=== PATIENT | female | born 1930 | race Caucasian/White ===

== ENCOUNTER 2017-04-09 15:18 | Inpatient (IN) | payer MEDICARE, MEDICAID ==
[~2017-04-09] VITALS: Ht 160 cm; Wt 64.9 kg
--- NOTE | 2017-04-09 15:30 | NUR ---
PT BIBRA TO ER BED 10. HERE FOR MEDICAL CLEARANCE PRIOR TO POSSIBLE ERNESTO PSYCH ADMISSION. HERE FOR INCREASING CONFUSION. GOWNED AND PLACED ON MONITOR. NAD NOTED AWAITING MD MATTHEWS.
--- NOTE | 2017-04-09 15:47 | NUR ---
DR VILLALOBOS AT BEDSIDE FOR EVAL.
[2017-04-09 15:55] LABS: BASOPHILS # (AUTO) 0.1 /CMM (0.0-0.2); BASOPHILS % (AUTO) 1.1 % (0.0-2.0); EOSINOPHILS # (AUTO) 0.3 /CMM (0.0-0.7); EOSINOPHILS % (AUTO) 6.3 % (0.0-6.0); HEMATOCRIT 33 % (33-45); HEMOGLOBIN 10.4 g/dL (11.5-14.8); LYMPHOCYTES # (AUTO) 1.1 /CMM (0.8-4.8); LYMPHOCYTES % (AUTO) 21.3 % (20.0-44.0); MEAN CORPUSCULAR HEMOGLOBIN 27 PG (26.0-33.0); MEAN CORPUSCULAR HGB CONC 32 g/dl (31.0-36.0); MEAN CORPUSCULAR VOLUME 86 fL (82-100); MONOCYTES # (AUTO) 0.5 /CMM (0.1-1.30); MONOCYTES % (AUTO) 9.5 % (2.0-12.0); NEUTROPHILS # (AUTO) 3.4 /CMM (1.8-8.9); NEUTROPHILS % (AUTO) 61.8 % (43.0-81.0); PLATELET COUNT (AUTO) 210 /CMM (150-450); RDW COEFFICIENT OF VARIATION 15.6 (11.5-15.0); WHITE BLOOD COUNT (AUTO) 5.4 K/uL (4.3-11.0)
[2017-04-09 16:03] LABS: CALCIUM, SERUM 8.5 mg/dL (8.5-10.1); CARBON DIOXIDE 28 mmol/L (21-32); CHLORIDE 107 mmol/L (98-107); CREATININE 1.1 mg/dL (0.6-1.3); GLUCOSE 106 mg/dL (74-106); POTASSIUM 3.5 mmol/L (3.5-5.1); SODIUM SERUM 142 mmol/L (136-145); UREA NITROGEN, BLOOD 11 mg/dL (7-18)
[2017-04-09 16:18] LABS: ACETAMINOPHEN 1 ug/ml (10-30); ALANINE AMINOTRANSFERASE 32 U/L (12-78); ALCOHOL, BLOOD < 3 mg/dL (0-0); ALKALINE PHOSPHATASE 59 U/L (46-116); ASPARTATE AMINOTRANSFERASE 35 U/L (15-37); BILIRUBIN,DIRECT 0.1 mg/dL (0.0-0.2); BILIRUBIN,TOTAL 0.3 mg/dL (0.2-1.0); TOTAL PROTEIN, SERUM 5.4 g/dL (6.4-8.2)
[2017-04-09 16:19] LABS: SALICYLATE 1.8 mg/dL (2.8-20.0)
[2017-04-09 17:00] LABS: APPEARANCE,URINE Clear (CLEAR); BILIRUBIN,URINE Negative (NEGATIVE); BLOOD, URINE Negative Ery/uL (NEGATIVE); COLOR,URINE Yellow (YELLOW); KETONES,URINE Negative (NEGATIVE); LEUKOCYTE ESTERASE ,URINE Negative (NEGATIVE); NITRITE, URINE Negative (NEGATIVE); PH,URINE 5.5 (5.0-8.0); PROTEIN,URINE Negative (NEGATIVE); UGLUCOSE Negative (NEGATIVE); UROBILINOGEN,URINE 0.2 EU/dL (0.2)
[2017-04-09] MEDS ORDERED: MELO7.5T12 PO (17:27)
[2017-04-09] MEDS ORDERED: ACET-2605 PO (17:27)
[2017-04-09] MEDS ORDERED: LUTE20CA PO (17:27)
[2017-04-09] MEDS ORDERED: SENN8.6T6 PO (17:27)
[2017-04-09] MEDS ORDERED: MULT-213 PO (17:27)
[2017-04-09] MEDS ORDERED: CLON0.2T PO (17:27)
[2017-04-09] MEDS ORDERED: LAMO100T PO (17:27)
[2017-04-09] MEDS ORDERED: BUPR-96 PO (17:27)
[2017-04-09] MEDS ORDERED: TRAZ-144 PO (17:27)
[2017-04-09] MEDS ORDERED: CALC-1049 PO (17:27)
[2017-04-09] MEDS ORDERED: DULO30CA2 PO (17:27)
[2017-04-09] MEDS ORDERED: QUET25TA PO (17:27)
[2017-04-09] MEDS ORDERED: HYDR12.55 PO (17:27)
[2017-04-09] MEDS ORDERED: DOCU100T2 PO (17:27)
[2017-04-09] MEDS ORDERED: BENA40TA2 PO (17:27)
[2017-04-09] MEDS ORDERED: ASPI-991 PO (17:27)
[2017-04-09] MEDS ORDERED: CEPH500C2 PO (17:27)
[2017-04-09] MEDS ORDERED: CHOL200026 PO (17:27)
[2017-04-09] MEDS ORDERED: LISINOPRIL (20MG) 20 MG TABLET PO STA (17:45)
--- NOTE | 2017-04-09 18:20 | NUR ---
REPORT GIVEN. PT AWAITING TRANSFER TO FLOOR.
[2017-04-09] MEDS ORDERED: MAG HYDROX/AL HYDROX/SIMETH 30 ML UDC PO PRN (19:00)
[2017-04-09] MEDS ORDERED: ACETAMINOPHEN 325 MG TABLET PO PRN (19:00)
[2017-04-09] MEDS ORDERED: MAGNESIUM HYDROXIDE 30 ML UDC PO PRN (19:00)
--- NOTE | 2017-04-09 19:00 | NUR ---
GPS RN ADMITTING NOTES: ADMITTED AN 86YO FEMALE FROM [facility] ON 5150 HOLD FOR GRAVE DISABILITY. PER HOLD THE PATIENT HAS BEEN UNCOOPERATIVE WITH CARE, AGITATED AND COMBATIVE AT TIMES, EASILY AGITATED AND CONFUSED. IT WAS ALSO STATED ON THE HOLD PATIENT BELIEVES SHE IS AT THE AIRPORT AT THIS TIME. PATIENT WILL BE UNDER THE CARE OF DR. NUÑEZ AND DR. THOMAS. THIS ADMISSION WAS INITIALLY STARTED BY DAY SHIFT RN'S. PICTURES WERE TAKEN AND PLACED IN THE CHART. PATIENT WAS UNABLE TO SIGN ADMISSION PAPERS SHE IS DISORGANIZED AND CONFUSED DURING THE ASSESSMENT. TOXICS PROGRAM OFFICER MADE A FACE TO FACE ASSESSMENT WITH PATIENT, SHE WAS OBSERVED TO BE CONFUSED, DISORGANIZED, DISHEVELED, UNKEMPT, EASILY AGITATED. ALERT AND ORIENT X1-NAME ONLY. PATIENT REFUSED TO FOLLOW INSTRUCTIONS FROM THE STAFF, ARGUMENTATIVE. REALITY ORIENTATION DONE. BELONGINGS AND CONTRABAND CHECKED. PATIENT CHANGED TO HOSPITAL GOWN AND CHANGED INTO A CLEAN DIAPER. FULL BODY ASSESSMENT DONE. PATIENT HAS HAD MULTIPLE HISTORY OF FALLS. 1:1 SITTER PROVIDED. UPON ADMISSION, PATIENT HAD A HIGH BLOOD PRESSURE- 181/79. DR. TENA INFORMED, WITH ORDERS TO GIVE HYDRALAZINE 25 MG PO Q6H FOR SBP OF 160 OR MORE. PRIOR TO GIVING THE MEDICATION BP RECHECKED 128-/83 HEART RATE OF 67. DR TENA INFORMED OF THE MED RECONCILIATION. DR. NUÑEZ INFORMED OF THE ADMISSION. INITIAL PSYCHE ADMISSION ORDERS DONE. CARE PLAN INITIATED. 1:1 SITTER MAINTAINED AND IN CLOSE PROXIMITY. WILL MONITOR PATIENT FOR MOOD, SAFETY AND BEHAVIOR. WILL ENDORSE PATIENT TO DAY SHIFT NURSE.
[2017-04-09 19:01] VITALS: BP 181/79
[2017-04-09] MEDS ORDERED: hydrALAZINE HCL 25 MG TABLET PO PRN (20:00)
[2017-04-09 20:15] VITALS: BP 128/83
[2017-04-09] MEDS ORDERED: clonazePAM 0.5 MG TABLET PO SCH (21:00)
[2017-04-09] MEDS: clonazePAM 1 MG TABLET PO PRN (21:01)
[2017-04-09] MEDS ORDERED: CLONIDINE HCL 0.2 MG TABLET PO PRN (23:30)
[2017-04-10 08:00] VITALS: BP 150/68
[2017-04-10] MEDS: CEPHALEXIN MONOHYDRATE 500 MG CAPSULE PO SCH ×4 (08:03→20:34)
[2017-04-10] MEDS: CALCIUM CARB 600MG /VIT D 1 EACH TABLET PO SCH (08:03)
[2017-04-10] MEDS: ASPIRIN EC 81 MG TABLET.DR PO SCH (08:04)
[2017-04-10] MEDS: CHOLECALCIFEROL 1,000 UNIT TABLET (VIT D3) PO SCH (08:04)
[2017-04-10] MEDS: BENAZEPRIL HCL 20 MG TABLET PO SCH (08:05)
[2017-04-10 08:16] LABS: ALANINE AMINOTRANSFERASE 33 U/L (12-78); ALBUMIN 3.1 g/dL (3.4-5.0); ALKALINE PHOSPHATASE 65 U/L (46-116); ASPARTATE AMINOTRANSFERASE 28 U/L (15-37); BILIRUBIN,TOTAL 0.4 mg/dL (0.2-1.0); CALCIUM, SERUM 8.6 mg/dL (8.5-10.1); CARBON DIOXIDE 26 mmol/L (21-32); CHLORIDE 111 mmol/L (98-107); CREATININE 0.9 mg/dL (0.6-1.3); GLUCOSE 89 mg/dL (74-106); POTASSIUM 3.4 mmol/L (3.5-5.1); SODIUM SERUM 145 mmol/L (136-145); TOTAL PROTEIN, SERUM 5.5 g/dL (6.4-8.2); UREA NITROGEN, BLOOD 8 mg/dL (7-18)
[2017-04-10] MEDS ORDERED: CLONIDINE HCL 0.1 MG TABLET PO PRN (08:30)
[2017-04-10] MEDS ORDERED: POTASSIUM CHLORIDE 20 MEQ TAB.PRT.SR PO ONE (10:30)
--- NOTE | 2017-04-10 14:09 | NUR ---
WOUND CARE CONSULT: PT PRESENTS WITH MULTIPLE BRUISES, SCABS TO BODY AND SOME DRY ABRASIONS TO RT FOOT, PRESENT ON ADMISSION. RECOMMENDATIONS MADE FOR SKIN PROTECTION. PT AMBULATED TO BATHROOM WITH ASSISTANCE. WILL SEE PRN. BRITT IN AGREEMENT WITH PLAN OF CARE. Addendum: 04/10/17 at 1410 by CYNDI BARRAGAN WNDNU Amended: Links added.
[2017-04-10] MEDS ORDERED: Z GUARD REMEDY 2 OZ OINT TP PRN (14:30)
[2017-04-10] MEDS: Z GUARD REMEDY 2 OZ OINT TP SCH (16:09)
[2017-04-10 16:10] VITALS: BP 153/83
[2017-04-10] MEDS: QUETIAPINE FUMARATE 25 MG TABLET PO SCH (16:50)
[2017-04-10] MEDS: DULOXETINE HCL 30 MG CAPSULE.DR PO SCH (16:50)
--- NOTE | 2017-04-10 17:03 | NUR ---
Initial discharge plan: Pt. was residing at [address] [place] [address] but per report, appears to be needing a placement. SW will follow up with children, Liza [phone],Kyler [phone], and Tai [phone] regarding discharge plan and will follow up with . SW will help arrange for a safe and proper discharge.
[2017-04-10 20:14] VITALS: BP 160/70
[2017-04-10] MEDS: TRAZODONE 50 MG TABLET PO SCH (21:19)
[2017-04-10] MEDS: SENNOSIDES 8.6 MG TABLET PO SCH (21:19)
[2017-04-11 08:00] VITALS: BP 111/62
[2017-04-11] MEDS: CALCIUM CARB 600MG /VIT D 1 EACH TABLET PO SCH (08:39)
[2017-04-11] MEDS: CEPHALEXIN MONOHYDRATE 500 MG CAPSULE PO SCH ×4 (08:39→21:15)
[2017-04-11] MEDS: BENAZEPRIL HCL 20 MG TABLET PO SCH (08:40)
[2017-04-11] MEDS: CHOLECALCIFEROL 1,000 UNIT TABLET (VIT D3) PO SCH (08:40)
[2017-04-11] MEDS: Z GUARD REMEDY 2 OZ OINT TP SCH (08:44)
[2017-04-11] MEDS: QUETIAPINE FUMARATE 25 MG TABLET PO SCH ×2 (08:45→16:13)
[2017-04-11] MEDS: DULOXETINE HCL 30 MG CAPSULE.DR PO SCH (08:48)
[2017-04-11] MEDS: ASPIRIN EC 81 MG TABLET.DR PO SCH (08:48)
[2017-04-11] MEDS: clonazePAM 1 MG TABLET PO PRN (14:11)
--- NOTE | 2017-04-11 14:38 | NUR ---
GPS RN NOTE: PATIENT IN THE ROOM AWAKE RESTLESS AND ANXIOUS CLONOPIN 0.25 MG GIVEN PER ORDER VSS STABLE PT BRETHING EVEN AND NONLABORED PATIENT 1:1 SITTER FOR SAFETY NOTED PATIENT VSS STABLE WILL CONTINUE MONITORING FOR SAFETY AND BEHAVIOR Q 15 MIN
[2017-04-11 15:43] VITALS: BP 151/81
[2017-04-11] MEDS: MEMANTINE HCL 5 MG TABLET PO SCH (16:13)
[2017-04-11 20:00] VITALS: BP 124/54
[2017-04-11] MEDS: DONEPEZIL 5 MG TABLET PO SCH (21:15)
[2017-04-11] MEDS: SENNOSIDES 8.6 MG TABLET PO SCH (21:16)
[2017-04-11] MEDS: TRAZODONE 50 MG TABLET PO SCH (21:16)
--- NOTE | 2017-04-12 06:31 | NUR ---
RN GPS NOTES PATIENT RESTING HER BED, NO ACUTE DISTRESS NOTED ,NO CHANGES IN STATUS. ALL NEEDS ATTENDED ANTICIPATED . REMAINED 1:1 SITTER FOR SAFETY, WILL ENDORSE TO NEXT SHIFT FOR CONTINUITY CARE
[2017-04-12 06:51] VITALS: BP 120/65
[2017-04-12 07:37] LABS: CHOLESTEROL 241 mg/dL (<200); HDL CHOLESTEROL 58 mg/dL (40-60); LDL 156 mg/dL (0-99); TRIGLYCERIDES 124 mg/dL (30-150)
[2017-04-12 08:00] VITALS: BP 119/76
[2017-04-12] MEDS: CHOLECALCIFEROL 1,000 UNIT TABLET (VIT D3) PO SCH (09:39)
[2017-04-12] MEDS: MEMANTINE HCL 5 MG TABLET PO SCH (09:39)
[2017-04-12] MEDS: CEPHALEXIN MONOHYDRATE 500 MG CAPSULE PO SCH ×2 (09:39→12:38)
[2017-04-12] MEDS: ASPIRIN EC 81 MG TABLET.DR PO SCH (09:39)
[2017-04-12] MEDS: DOCUSATE SODIUM 100 MG CAPSULE PO PRN (09:39)
[2017-04-12] MEDS: DULOXETINE HCL 30 MG CAPSULE.DR PO SCH (09:39)
[2017-04-12] MEDS: CALCIUM CARB 600MG /VIT D 1 EACH TABLET PO SCH (09:39)
[2017-04-12] MEDS: QUETIAPINE FUMARATE 25 MG TABLET PO SCH ×2 (09:40→16:42)
[2017-04-12] MEDS: BENAZEPRIL HCL 20 MG TABLET PO SCH (09:42)
[2017-04-12] MEDS: Z GUARD REMEDY 2 OZ OINT TP SCH (09:49)
[2017-04-12 15:59] VITALS: BP 155/80
--- NOTE | 2017-04-12 16:11 | NUR ---
RN-CO: CALLED DR NULL TO INFORM HER THAT PATIENT'S DAUGHTER , KELSEY WANTS TO TALK TO HER BUT THE OFFICE IS ALREADY CLOSED. ENDORSED TO THE NEXT SHIFT.
--- NOTE | 2017-04-12 19:21 | NUR ---
GPS/RN NOTE; RECEIVED PATIENT ALERT, ORIENTED X3, NO COMPLAINTS MADE AT THIS TIME. NO APPARENT DISTRESS NOTED.
[2017-04-12 20:00] VITALS: BP 117/57
[2017-04-12] MEDS: DONEPEZIL 5 MG TABLET PO SCH (21:08)
[2017-04-12] MEDS: SENNOSIDES 8.6 MG TABLET PO SCH (21:08)
[2017-04-12] MEDS: TRAZODONE 50 MG TABLET PO SCH (21:08)
[2017-04-13 08:00] VITALS: BP 143/59
[2017-04-13] MEDS: ASPIRIN EC 81 MG TABLET.DR PO SCH (08:49)
[2017-04-13] MEDS: BENAZEPRIL HCL 20 MG TABLET PO SCH (08:50)
[2017-04-13] MEDS: CALCIUM CARB 600MG /VIT D 1 EACH TABLET PO SCH (08:50)
[2017-04-13] MEDS: CHOLECALCIFEROL 1,000 UNIT TABLET (VIT D3) PO SCH (08:50)
[2017-04-13] MEDS: DULOXETINE HCL 30 MG CAPSULE.DR PO SCH (08:50)
[2017-04-13] MEDS: MEMANTINE HCL 5 MG TABLET PO SCH (08:50)
[2017-04-13] MEDS: QUETIAPINE FUMARATE 25 MG TABLET PO SCH ×2 (08:51→17:43)
[2017-04-13] MEDS: Z GUARD REMEDY 2 OZ OINT TP SCH (08:57)
[2017-04-13 16:00] VITALS: BP 148/58
[2017-04-13 20:00] VITALS: BP 146/73
[2017-04-13] MEDS: TRAZODONE 50 MG TABLET PO SCH (21:02)
[2017-04-13] MEDS: SENNOSIDES 8.6 MG TABLET PO SCH (21:02)
[2017-04-13] MEDS: DONEPEZIL 5 MG TABLET PO SCH (21:02)
[2017-04-14 07:52] VITALS: BP 153/68
[2017-04-14] MEDS: MEMANTINE HCL 5 MG TABLET PO SCH (09:11)
[2017-04-14] MEDS: ASPIRIN EC 81 MG TABLET.DR PO SCH (09:11)
[2017-04-14] MEDS: CHOLECALCIFEROL 1,000 UNIT TABLET (VIT D3) PO SCH (09:11)
[2017-04-14] MEDS: DULOXETINE HCL 30 MG CAPSULE.DR PO SCH (09:12)
[2017-04-14] MEDS: BENAZEPRIL HCL 20 MG TABLET PO SCH (09:12)
[2017-04-14] MEDS: CALCIUM CARB 600MG /VIT D 1 EACH TABLET PO SCH (09:12)
[2017-04-14] MEDS: QUETIAPINE FUMARATE 25 MG TABLET PO SCH ×2 (09:12→17:22)
[2017-04-14] MEDS: Z GUARD REMEDY 2 OZ OINT TP SCH (09:13)
[2017-04-14] MEDS: clonazePAM 1 MG TABLET PO PRN (10:42)
--- NOTE | 2017-04-14 10:42 | NUR ---
ADMINISTERED KLONOPIN 0.25 MG PO PRN FOR ANXIETY, PARANOIA, V/S TAKEN BP-138/69, P-70, CONTINUED MONITORING.
[2017-04-14 15:48] VITALS: BP 140/67
[2017-04-14 20:11] VITALS: BP 108/50
[2017-04-14] MEDS: TRAZODONE 50 MG TABLET PO SCH (21:02)
[2017-04-14] MEDS: DONEPEZIL 5 MG TABLET PO SCH (21:02)
[2017-04-14] MEDS: SENNOSIDES 8.6 MG TABLET PO SCH (21:02)
[2017-04-15 08:00] VITALS: BP 156/64
[2017-04-15] MEDS: QUETIAPINE FUMARATE 25 MG TABLET PO SCH ×2 (08:14→16:19)
[2017-04-15] MEDS: DULOXETINE HCL 30 MG CAPSULE.DR PO SCH (08:14)
[2017-04-15] MEDS: MEMANTINE HCL 5 MG TABLET PO SCH (08:14)
[2017-04-15] MEDS: BENAZEPRIL HCL 20 MG TABLET PO SCH (08:14)
[2017-04-15] MEDS: Z GUARD REMEDY 2 OZ OINT TP SCH (08:16)
[2017-04-15] MEDS: ASPIRIN EC 81 MG TABLET.DR PO SCH (08:21)
[2017-04-15] MEDS: CALCIUM CARB 600MG /VIT D 1 EACH TABLET PO SCH (08:21)
[2017-04-15] MEDS: CHOLECALCIFEROL 1,000 UNIT TABLET (VIT D3) PO SCH (12:27)
--- NOTE | 2017-04-15 15:25 | NUR ---
YVONNE spoke with daughter, Tai [phone] who reported that pt. was a resident at the [facility] [place] [address], [place] [address] but wants her to go to their shelter facility for rehabilitation upon discharge. YVONNE called [facility] [phone] and spoke with Ana, and she forwarded the call to Lucie [phone] fax [phone]. YVONNE spoke with Lucie and faxed a referral for their SNF but per Lucie, they will look at the paperwork, discuss with the treatment team, and will determine what level of care she requires. YVONNE will follow up with Lucie.
[2017-04-15 16:00] VITALS: BP 140/65
[2017-04-15 19:37] VITALS: BP 98/49
[2017-04-15] MEDS: DONEPEZIL 5 MG TABLET PO SCH (21:15)
[2017-04-15] MEDS: SENNOSIDES 8.6 MG TABLET PO SCH (21:15)
[2017-04-15] MEDS: TRAZODONE 50 MG TABLET PO SCH (21:15)
[2017-04-16 08:00] VITALS: BP 149/59
[2017-04-16] MEDS: CHOLECALCIFEROL 1,000 UNIT TABLET (VIT D3) PO SCH (08:40)
[2017-04-16] MEDS: DULOXETINE HCL 30 MG CAPSULE.DR PO SCH (08:41)
[2017-04-16] MEDS: CALCIUM CARB 600MG /VIT D 1 EACH TABLET PO SCH (08:41)
[2017-04-16] MEDS: BENAZEPRIL HCL 20 MG TABLET PO SCH (08:41)
[2017-04-16] MEDS: QUETIAPINE FUMARATE 25 MG TABLET PO SCH ×2 (08:41→16:15)
[2017-04-16] MEDS: ASPIRIN EC 81 MG TABLET.DR PO SCH (08:41)
[2017-04-16] MEDS: MEMANTINE HCL 5 MG TABLET PO SCH (08:41)
[2017-04-16] MEDS: Z GUARD REMEDY 2 OZ OINT TP SCH (08:42)
--- NOTE | 2017-04-16 14:35 | NUR ---
YVONNE received a voicemail from Lucie from [facility] [phone] fax [phone] stating they are unable to accommodate the patient and that pt. cannot return back to the [facility]. YVONNE spoke with pt's daughter, Tai [phone] notifying her of the update and asked if YVONNE should start looking at other options. Tai said she will speak with her siblings and will call back.
[2017-04-16 16:00] VITALS: BP 119/63
--- NOTE | 2017-04-16 16:36 | NUR ---
YVONNE faxed a referral to [facility] [place] [address] [facility], [place] [address] . Will follow up Addendum: 04/18/17 at 1559 by TAD RUSSELL Per Rosie at the facility, pt is accepted.
[2017-04-16] MEDS: clonazePAM 1 MG TABLET PO PRN ×2 (17:24→17:39)
--- NOTE | 2017-04-16 17:33 | NUR ---
GPS RN NOTE PT INCREASINGLY AGITATED, CUSSING AT STAFF AND YELLING. PT UNSTEADY AND FALL PRECAUTIONS IN PLACE.. REORIENTATING AND REDIRECTING PT TO DECREASE AGITATION.
[2017-04-16 20:43] VITALS: BP 123/63
[2017-04-16] MEDS: SENNOSIDES 8.6 MG TABLET PO SCH (21:14)
[2017-04-16] MEDS: DONEPEZIL 5 MG TABLET PO SCH (21:14)
[2017-04-16] MEDS: TRAZODONE 50 MG TABLET PO SCH (21:14)
[2017-04-17] MEDS: clonazePAM 1 MG TABLET PO PRN ×2 (03:52→21:23)
[2017-04-17 08:00] VITALS: BP 105/50
[2017-04-17] MEDS: CHOLECALCIFEROL 1,000 UNIT TABLET (VIT D3) PO SCH (09:38)
[2017-04-17] MEDS: DULOXETINE HCL 30 MG CAPSULE.DR PO SCH (09:38)
[2017-04-17] MEDS: ASPIRIN EC 81 MG TABLET.DR PO SCH (09:38)
[2017-04-17] MEDS: QUETIAPINE FUMARATE 25 MG TABLET PO SCH ×2 (09:38→17:00)
[2017-04-17] MEDS: CALCIUM CARB 600MG /VIT D 1 EACH TABLET PO SCH (09:38)
[2017-04-17] MEDS: MEMANTINE HCL 5 MG TABLET PO SCH (09:39)
[2017-04-17] MEDS: BENAZEPRIL HCL 20 MG TABLET PO SCH (09:40)
[2017-04-17] MEDS: Z GUARD REMEDY 2 OZ OINT TP SCH (09:43)
--- NOTE | 2017-04-17 15:06 | NUR ---
YVONNE spoke with pt's Liza robbins [phone] who wanted to know why pt. could not return to the previous facility, [facility] before she can talk to them and make a decision about discharge plan. YVONNE will follow up
[2017-04-17 16:20] VITALS: BP 106/58
[2017-04-17 20:27] VITALS: BP 109/46
[2017-04-17] MEDS: SENNOSIDES 8.6 MG TABLET PO SCH (21:23)
[2017-04-17] MEDS: DONEPEZIL 5 MG TABLET PO SCH (21:23)
[2017-04-17] MEDS: TRAZODONE 50 MG TABLET PO SCH (21:23)
[2017-04-18] MEDS: TEMAZEPAM 7.5 MG CAPSULE PO PRN ×2 (00:12→20:54)
[2017-04-18 08:00] VITALS: BP 159/60
[2017-04-18] MEDS: DOCUSATE SODIUM 100 MG CAPSULE PO PRN (09:01)
[2017-04-18] MEDS: CHOLECALCIFEROL 1,000 UNIT TABLET (VIT D3) PO SCH (09:02)
[2017-04-18] MEDS: CALCIUM CARB 600MG /VIT D 1 EACH TABLET PO SCH (09:02)
[2017-04-18] MEDS: ASPIRIN EC 81 MG TABLET.DR PO SCH (09:02)
[2017-04-18] MEDS: MEMANTINE HCL 5 MG TABLET PO SCH (09:02)
[2017-04-18] MEDS: QUETIAPINE FUMARATE 25 MG TABLET PO SCH ×2 (09:02→16:08)
[2017-04-18] MEDS: BENAZEPRIL HCL 20 MG TABLET PO SCH (09:02)
[2017-04-18] MEDS: Z GUARD REMEDY 2 OZ OINT TP SCH (09:03)
[2017-04-18] MEDS: DULOXETINE HCL 30 MG CAPSULE.DR PO SCH (09:05)
[2017-04-18 15:45] VITALS: BP 100/59
--- NOTE | 2017-04-18 16:00 | NUR ---
YVONNE spoke with pt's daugther, Liza [phone] and daughter, Tai [phone] together and they notified the social welfare research worker that after speaking with Lucie from [facility] [phone] and that they were told that pt. cannot return due to aggressive behavior and elopement risk. They asked the social welfare research worker to print updated notes from the psychiatrist and nursing stating the true status of the patient (pt is not aggressive now and is not an elopement risk) and social welfare research worker did so. After sending the new information, YVONNE received a call from Lucie again and was told that they still cannot accept the patient and if the daughter has a problem she can contact their linux unix system administrator. YVONNE relayed that information to Liza and Tai. They were still unhappy with the result and wanted to speak with them again. After a few hours, YVONNE received a call again from Liza stating that no one has been calling them back and asked for the social welfare research worker to call and demand that they come and assess the patient and accept the patient at their facility. YVONNE explained that such attempt has been done (social welfare research worker asked for them to assess, and per Lucie ,they do not have time for that) and has sent paperwork for acceptance, and still received a denial. Liza asked the social welfare research worker to provide strip mine supervisor's number, whom she could ask to call [facility] to attempt to force to take the patient back. YVONNE provided the Assistant Guest Services Manager, Dorota Ramirez's number.
--- NOTE | 2017-04-18 16:11 | NUR ---
Pt's daughters, Liza [phone] and daughter, Tai [phone] were notified of patient's acceptance to [facility] [address] [place] [address]; . They did not want to hear much about it as they are focused now on placing the patient at the [facility] [address] [facility] . Pt's daughters have been told from the beginning of the patient's stay that pt. will need an alternate option if [facility] is not able to accept the patient back or place in any of their other facilities, but from the beginning, both daughters have not been open to the option and did not want to even discuss it. YVONNE on several occasions has asked them to look at the other option available, but they have said that they are not ready to look elsewhere. SW will follow up
[2017-04-18 19:58] VITALS: BP 103/51
[2017-04-18 20:00] VITALS: BP 103/51
[2017-04-18] MEDS: DONEPEZIL 5 MG TABLET PO SCH (20:54)
[2017-04-18] MEDS: TRAZODONE 50 MG TABLET PO SCH (20:54)
[2017-04-18] MEDS: SENNOSIDES 8.6 MG TABLET PO SCH (20:54)
[2017-04-19 08:00] VITALS: BP 111/52
[2017-04-19] MEDS: CHOLECALCIFEROL 1,000 UNIT TABLET (VIT D3) PO SCH (09:52)
[2017-04-19] MEDS: BENAZEPRIL HCL 20 MG TABLET PO SCH (09:53)
[2017-04-19] MEDS: QUETIAPINE FUMARATE 25 MG TABLET PO SCH ×2 (09:53→17:21)
[2017-04-19] MEDS: ASPIRIN EC 81 MG TABLET.DR PO SCH (09:53)
[2017-04-19] MEDS: DULOXETINE HCL 30 MG CAPSULE.DR PO SCH (09:53)
[2017-04-19] MEDS: MEMANTINE HCL 5 MG TABLET PO SCH (09:53)
[2017-04-19] MEDS: CALCIUM CARB 600MG /VIT D 1 EACH TABLET PO SCH (09:53)
[2017-04-19] MEDS: Z GUARD REMEDY 2 OZ OINT TP SCH (09:54)
--- NOTE | 2017-04-19 11:05 | NUR ---
Pt. was referred and accepted to [facility] Address: [address] [place] [address] . Pt's daughter Liza [phone] has been notified about this and still is not ready to make a decision as she is waiting for the arts administrator or manager from [facility] to call her back. SW reminded Liza of the two accepting facilities, [facility] Address: [address] [place] [address] and [facility] and [facility] [address] [address] . She was asked to call back when a final decision is made to discuss which of the two facilities they would like their mother to go to in case [facility] still refuses the patient.
--- NOTE | 2017-04-19 12:03 | NUR ---
YVONNE spoke with both pt's daughters, Liza [phone] and daughter, Tai [phone] and wanted to start planning the patients discharge. Per Tai, they haven't had time to look at any other option, as they did not know that the [facility] was not able to accept their mother (both have been notified of this days ago but refused to accept it), and have been given the chance and opportunity to check the other accepting facilities. They have not done so as they are still trying to convince [facility] to accept their mother.
--- NOTE | 2017-04-19 15:12 | NUR ---
Late entry: On 04/18/17 this outreach and education social worker spoke with daughter, Liza [phone] around 1530 as she had asked for a call from the social group worker via Shani CARR. Liza was insisting that the [facility] will accept her mother back. She asked for this outreach and education social worker to call the [facility]. This report writer spoke with Shayy at [facility] who is Poppy's senior manufacturing supervisor. Shayy said they will not be accepting the pt. back. Advised Liza that they will not take her mother at [facility]. She agreed to cooperate with Shani on 04/18/17 and allow transfer to another facility on 04/19/17.
--- NOTE | 2017-04-19 15:20 | NUR ---
YVONNE spoke to patient's daughter Liza [phone] regarding patient's discharge, Liza was unhappy with the discharge plan and stated that patient cannot be discharged without consent. aircraft layout worker informed Liza that patient has two appropriate accepting facilities ([facility] Address: [address] [place] [address], [place] [address] and [facility] and rehabilitation [address] [address] ). aircraft layout worker Shani had discussed alternative placement options with patient's family from the beginning when she was notified by [facility] that they cannot accept the patient and back and do not have any beds available. Patient's daughter Liza refused to accept that [facility] is not accepting patient and has said that they are not ready to look elsewhere. aircraft layout worker discussed case with supervisor dock Dorota Ramirez who stated that letter of denial should be served to the family. aircraft layout worker and human services case manager Chalino spoke to patient's daughter Liza to inform her that she is going to be served a letter of denial and the family will be responsible for the hospital bill effective immediately. The denial letter was placed in chart and charge nurse was notified as family is not providing a fax number or email address. Liza stated, "Do what you have to do." Patient's daughter Liza refused to provide a fax number or email address and stated, "call my brother he is the power of mergers and acquisitions attorney." aircraft layout worker attempted to contact patient's son Kyler Scott, ([phone]) who was unavailable. aircraft layout worker and human services case manager Chalino left Kyler a detailed message explaining the situation and informed him that if he is the power of mergers and acquisitions attorney we needed him to provide the paperwork today by 4:15pm and informed him that if we did not receive the paperwork we need a fax number or email address to serve the letter of denial. Celery Packer was notified and updated on the case.
[2017-04-19 16:00] VITALS: BP 120/64
--- NOTE | 2017-04-19 18:00 | NUR ---
GPS RN NOTES LETTER OF DENIAL GIVEN PATIENT DAUGHTER NAME AMANDA. DAUGHTER REFUSED TO SIGN, AND ASKED COPY FOR GIVE HER BROTHER, WHO HAS A POWER OF FARM MARKETER, HE IS RESPONSIBLE PART.
[2017-04-19 20:00] VITALS: BP 125/57
[2017-04-19] MEDS: TRAZODONE 50 MG TABLET PO SCH (21:30)
[2017-04-19] MEDS: SENNOSIDES 8.6 MG TABLET PO SCH (21:30)
[2017-04-19] MEDS: DONEPEZIL 5 MG TABLET PO SCH (21:31)
--- NOTE | 2017-04-20 06:29 | NUR ---
RN GPS NOTES PATIENT RESTING HER BED, NO ACUTE DISTRESS NOTED ,NO CHANGES IN STATUS. ALL NEEDS ATTENDED ANTICIPATED ,WILL ENDORSE TO NEXT SHIFT FOR CONTINUITY CARE
[2017-04-20 08:00] VITALS: BP 159/69
[2017-04-20] MEDS: DULOXETINE HCL 30 MG CAPSULE.DR PO SCH (09:07)
[2017-04-20] MEDS: DOCUSATE SODIUM 100 MG CAPSULE PO PRN (09:07)
[2017-04-20] MEDS: CALCIUM CARB 600MG /VIT D 1 EACH TABLET PO SCH (09:08)
[2017-04-20] MEDS: MEMANTINE HCL 5 MG TABLET PO SCH (09:08)
[2017-04-20] MEDS: QUETIAPINE FUMARATE 25 MG TABLET PO SCH ×2 (09:08→16:25)
[2017-04-20] MEDS: ASPIRIN EC 81 MG TABLET.DR PO SCH (09:08)
[2017-04-20] MEDS: BENAZEPRIL HCL 20 MG TABLET PO SCH (09:08)
[2017-04-20] MEDS: CHOLECALCIFEROL 1,000 UNIT TABLET (VIT D3) PO SCH (09:08)
[2017-04-20] MEDS: Z GUARD REMEDY 2 OZ OINT TP SCH (09:09)
[2017-04-20 16:00] VITALS: BP 100/62
[2017-04-20 20:00] VITALS: BP 114/61
[2017-04-20] MEDS: TRAZODONE 50 MG TABLET PO SCH (21:34)
[2017-04-20] MEDS: DONEPEZIL 5 MG TABLET PO SCH (21:34)
[2017-04-20] MEDS: SENNOSIDES 8.6 MG TABLET PO SCH (21:35)
[2017-04-21 08:00] VITALS: BP 147/67
[2017-04-21] MEDS: MEMANTINE HCL 5 MG TABLET PO SCH (08:59)
[2017-04-21] MEDS: QUETIAPINE FUMARATE 25 MG TABLET PO SCH ×2 (08:59→16:51)
[2017-04-21] MEDS: CALCIUM CARB 600MG /VIT D 1 EACH TABLET PO SCH (08:59)
[2017-04-21] MEDS: BENAZEPRIL HCL 20 MG TABLET PO SCH (08:59)
[2017-04-21] MEDS: CHOLECALCIFEROL 1,000 UNIT TABLET (VIT D3) PO SCH (08:59)
[2017-04-21] MEDS: DULOXETINE HCL 30 MG CAPSULE.DR PO SCH (08:59)
[2017-04-21] MEDS: ASPIRIN EC 81 MG TABLET.DR PO SCH (08:59)
[2017-04-21] MEDS: Z GUARD REMEDY 2 OZ OINT TP SCH (09:00)
[2017-04-21 16:18] VITALS: BP 134/60
[2017-04-21 20:33] VITALS: BP 100/46
--- NOTE | 2017-04-21 21:19 | NUR ---
GPS/RN NOTE: REPORT GIVEN TO NURSE LINDA VALLE FOR CONTINUITY OF CARE.
[2017-04-21] MEDS: DONEPEZIL 5 MG TABLET PO SCH (21:35)
[2017-04-21] MEDS: TRAZODONE 50 MG TABLET PO SCH (21:35)
[2017-04-21] MEDS: SENNOSIDES 8.6 MG TABLET PO SCH (21:35)
--- NOTE | 2017-04-22 00:57 | NUR ---
Pt has been hyperverbal, quite argumentative, & easily irritable but compliant with meds with minimal promptings.
[2017-04-22 08:00] VITALS: BP 140/60
[2017-04-22] MEDS: QUETIAPINE FUMARATE 25 MG TABLET PO SCH ×2 (09:20→16:41)
[2017-04-22] MEDS: CHOLECALCIFEROL 1,000 UNIT TABLET (VIT D3) PO SCH (09:20)
[2017-04-22] MEDS: DULOXETINE HCL 30 MG CAPSULE.DR PO SCH (09:20)
[2017-04-22] MEDS: MEMANTINE HCL 5 MG TABLET PO SCH (09:20)
[2017-04-22] MEDS: ASPIRIN EC 81 MG TABLET.DR PO SCH (09:20)
[2017-04-22] MEDS: BENAZEPRIL HCL 20 MG TABLET PO SCH (09:22)
[2017-04-22] MEDS: Z GUARD REMEDY 2 OZ OINT TP SCH (09:22)
[2017-04-22] MEDS: CALCIUM CARB 600MG /VIT D 1 EACH TABLET PO SCH (10:22)
--- NOTE | 2017-04-22 14:57 | NUR ---
DIRECTOR OF CARDIOLOGY-NOTES DAUGHTER BROUGHT 8 PCS.OF UNDERWEAR AND X1 READING GLASS (WITH THE PATIENT) WITH LABEL XI [employer] AND XI [employer]OSSW[employer] PUZZLE BOOK. SHE ALSO TOOK HOME X1 GREEN PANTS AND X1 BLUE SHIRT FOR WASHING.
[2017-04-22 16:00] VITALS: BP 136/66
--- NOTE | 2017-04-22 17:26 | NUR ---
YVONNE spoke with pt's son, Kyler Scott, ([phone]) at length who has to be informed of everything that has been happening and claimed that he did not have much information. YVONNE asked if Kyler was the DPOA for the patient, and Kyler said "maybe, if they say I am, not sure." YVONNE notified Kyler that unless a DPOA paperwork is produced, DPOA cannot be honored. After discussing the case with Kyler, he mentioned that SW will have nothing but cooperation from him; however, continued to not make a decision and asked for more time. He mentioned he did not know anything about this, and that he wanted a letter in writing from the [facility] as to why they are not accepting his mother. He was told that Liza, has received a letter of denial for services as pt. has been ready for discharge, and that the family will be billed as they are the ones delaying the discharge. Kyler did not agree with that and claimed that family should not and cannot be held responsible for pt's payments. Kyler was provided information about both accepting facilities and was asked to make a decision. Per Kyler, he has until tomorrow noon to decide whether he wants to appeal the doctor's decision or not, and if they choose to appeal, hospital cannot discharge the patient until a decision is made. He said he needs to investigate to see if the patient is really ready for discharge. After continuous attempts to get the family make a decision or even consider the option of discharging the patient to a different facility, Kyler still did not provide any consent. He believes that the family has a say and should decide when and where the patient should discharge, which he was told was what the rn social services was trying to accomplish too, but would not be the case if they continue to fail to make a decision. He was informed that as no one had a legal power over the patient, pt. will get to give her own consent. YVONNE will follow up with Kyler again by 12:00PM to proceed. Addendum: 04/22/17 at 1742 by TAD RUSSELL Kyler was asked to tour the accepting facilities [facility] Address: [address] [place] [address] and [facility] [address] [address] ) to have more information in order to make a better decision about which facility they would prefer, but he did not want it. Per Kyler, "it's more about the demographics". YVONNE asked, "does that mean you would prefer [facility]?", Kyler was not sure.
--- NOTE | 2017-04-22 19:30 | NUR ---
GPS RN NOTE, RECEIVED PATIENT AWAKE AND IN BED, NO S/S OR COMPLAINTS OF PAIN AT THIS TIME. PATIENT IS DISPLAYING NO S/S OF APPARENT DISTRESS AT THIS TIME. PATIENT BREATHING IS UNLABORED WITH EQUAL RISE AND FALL OF THE CHEST. PATIENT IS ALERT AND ORIENTED X 1 ON ROOM AIR WITH A SPO2 94%. PATIENT COMPLAINT WITH MEDICATION, CONFUSED AT TIMES, ANXIOUS, COOPERATIVE, AND NEEDS REORIENTATION. PATIENT DENIES SUICIDE AND HOMICIDAL IDEATIONS AT THIS TIME. PATIENT ASSISTED WITH TURNING AND REPOSITIONING Q2HR AND PRN FOR COMFORT AND CIRCULATION. PATIENT HAS NO NEEDS AT THIS TIME. PATIENT EDUCATED ON THE USE OF THE CALL STAUFFER. PATIENT BED SIDE RAILS UP X2 FOR SAFETY, BED IS LOCKED AND LOW WILL CONTINUE TO MONITOR AND MAINTAIN SAFETY.
[2017-04-22 21:03] VITALS: BP 129/61
[2017-04-22] MEDS: TRAZODONE 50 MG TABLET PO SCH (21:31)
[2017-04-22] MEDS: DONEPEZIL 5 MG TABLET PO SCH (21:31)
[2017-04-22] MEDS: SENNOSIDES 8.6 MG TABLET PO SCH (21:34)
--- NOTE | 2017-04-22 21:34 | NUR ---
GPS RN NOTE, PATIENT REFUSED TO TAKE SENOKOT 17.2MG PO HS. OFFERED SENOKOT THREE TIMES BUT STILL PATIENT REFUSED STATING, " I'M NOT CONSTIPATED AND I DON'T WANT IT ". EDUCATED THE PATIENT ON THE RISK AND BENEFITS OF TAKING AND REFUSING AFOREMENTIONED MEDICATION. WILL CONTINUE TO MONITOR THIS PATIENT.
[2017-04-23 08:00] VITALS: BP 147/52
[2017-04-23] MEDS: MEMANTINE HCL 5 MG TABLET PO SCH (09:22)
[2017-04-23] MEDS: QUETIAPINE FUMARATE 25 MG TABLET PO SCH ×2 (09:22→16:58)
[2017-04-23] MEDS: ASPIRIN EC 81 MG TABLET.DR PO SCH (09:24)
[2017-04-23] MEDS: BENAZEPRIL HCL 20 MG TABLET PO SCH (09:24)
[2017-04-23] MEDS: CALCIUM CARB 600MG /VIT D 1 EACH TABLET PO SCH (09:25)
[2017-04-23] MEDS: DULOXETINE HCL 30 MG CAPSULE.DR PO SCH (09:25)
[2017-04-23] MEDS: Z GUARD REMEDY 2 OZ OINT TP SCH (09:26)
[2017-04-23] MEDS: CHOLECALCIFEROL 1,000 UNIT TABLET (VIT D3) PO SCH (10:41)
--- NOTE | 2017-04-23 11:52 | NUR ---
SW spoke with the pt's son, Kyler Scott, ([phone]) who mentioned that they are leaning towards [address] [address] . However, he was still not definite and asked for the psychiatrist to write a note that states in detail that the patient is ready for discharge to a residential facility, that she is not an elopement risk, and add more details about pt's current behavior and condition. when SW asked why Kyler needed that note, he was not able to specify. YVONNE will follow up with the psychiatrist.
--- NOTE | 2017-04-23 11:56 | NUR ---
YVONNE received a faxed from [facility] [place] [phone] fax [phone] requesting paperwork as the patient's family did appeal the decision of discharge after receiving a denial letter on 04/19/17. YVONNE faxed all necessary requested paperwork. Will follow up and wait for a decision.
[2017-04-23 16:00] VITALS: BP 130/55
[2017-04-23 20:27] VITALS: BP 129/60
[2017-04-23] MEDS: SENNOSIDES 8.6 MG TABLET PO SCH (21:24)
[2017-04-23] MEDS: TRAZODONE 50 MG TABLET PO SCH (21:24)
[2017-04-23] MEDS: DONEPEZIL 5 MG TABLET PO SCH (21:24)
--- NOTE | 2017-04-24 06:51 | NUR ---
RN GPS NOTES PATIENT RESTING HER BED, NO ACUTE DISTRESS NOTED ,NO CHANGES IN STATUS. ALL NEEDS ATTENDED ANTICIPATED , PT. COMPLY WITH DUE MEDS ,WILL ENDORSE TO NEXT SHIFT FOR CONTINUITY CARE
[2017-04-24 08:00] VITALS: BP 151/63
[2017-04-24] MEDS: BENAZEPRIL HCL 20 MG TABLET PO SCH (09:21)
[2017-04-24] MEDS: CALCIUM CARB 600MG /VIT D 1 EACH TABLET PO SCH (09:21)
[2017-04-24] MEDS: CHOLECALCIFEROL 1,000 UNIT TABLET (VIT D3) PO SCH (09:21)
[2017-04-24] MEDS: ASPIRIN EC 81 MG TABLET.DR PO SCH (09:21)
[2017-04-24] MEDS: MEMANTINE HCL 5 MG TABLET PO SCH (09:22)
[2017-04-24] MEDS: QUETIAPINE FUMARATE 25 MG TABLET PO SCH ×2 (09:22→16:05)
[2017-04-24] MEDS: Z GUARD REMEDY 2 OZ OINT TP SCH (09:22)
[2017-04-24] MEDS: DULOXETINE HCL 30 MG CAPSULE.DR PO SCH (09:22)
[2017-04-24 16:24] VITALS: BP 131/64
--- NOTE | 2017-04-24 17:20 | NUR ---
YVONNE called [facility] [phone] to follow up on the status, and was told that there is a status that it's pending and someone will call later to notify of the decision.
--- NOTE | 2017-04-24 17:21 | NUR ---
YVONNE spoke with pt's daughter, Tai [phone] who provided a facility name to fax a referral. YVONNE had a lengthy conversation with Tai and she was still not happy with what was going on and reported her disappointment with the [facility]. Tai said she will not sign off of her mother to discharge unless she is happy with the facility. YVONNE informed the Tai that if by the time the decision is made by [facility] there isn't another accepting facility, pt will need to discharge to [address] [address] as that is the facility her brother, Kyler [phone] agreed to. YVONNE faxed a referral to [facility] Address: [address] [place] [address] . Will follow up
--- NOTE | 2017-04-24 17:28 | NUR ---
YVONNE spoke with pt's daughter Liza [phone] who apologized for her sister as Tai [phone] did mention to her that she was not happy today. YVONNE told Liza that there was no need to apologize for her sister, and that the addiction social worker was doing everything she could to help and work with the family. Liza thanked the addiction social worker and appreciated all the hard work and patience. YVONNE notified Liza also that once a decision is made by [facility], addiction social worker had to discharge the patient. Liza understands that. Liza asked if pt. needs a board and care and not a rehab and addiction social worker told her that due to not having enough time, they would have to work on that after pt. discharges to a lower level of care. Liza understood and agreed with that. YVONNE provided the number of a placement agent from [facility], who can help further to find an appropriate intermodal dispatcher placement. YVONNE will follow up with [facility] tomorrow and will proceed with discharge.
--- NOTE | 2017-04-24 19:30 | NUR ---
GPS RN NOTE, RECEIVED PATIENT AWAKE AND IN BED, NO S/S OR COMPLAINTS OF PAIN AT THIS TIME. PATIENT IS DISPLAYING NO S/S OF APPARENT DISTRESS AT THIS TIME. PATIENT BREATHING IS UNLABORED WITH EQUAL RISE AND FALL OF THE CHEST. PATIENT IS ALERT AND ORIENTED X 1-2 ON ROOM AIR WITH A SPO2 94%. PATIENT COMPLAINT WITH MEDICATION, CONFUSED AT TIMES, ANXIOUS, COOPERATIVE, AND NEEDS REORIENTATION. PATIENT DENIES SUICIDE AND HOMICIDAL IDEATIONS AT THIS TIME. PATIENT ASSISTED WITH TURNING AND REPOSITIONING Q2HR AND PRN FOR COMFORT AND CIRCULATION. PATIENT HAS NO NEEDS AT THIS TIME. PATIENT EDUCATED ON THE USE OF THE CALL STAUFFER. PATIENT BED SIDE RAILS UP X2 FOR SAFETY, BED IS LOCKED AND LOW WILL CONTINUE TO MONITOR AND MAINTAIN SAFETY.
[2017-04-24 20:44] VITALS: BP 99/57
[2017-04-24] MEDS: DONEPEZIL 5 MG TABLET PO SCH (21:36)
[2017-04-24] MEDS: TRAZODONE 50 MG TABLET PO SCH (21:37)
[2017-04-24] MEDS: SENNOSIDES 8.6 MG TABLET PO SCH (21:37)
--- NOTE | 2017-04-24 21:37 | NUR ---
GPS RN NOTE, PATIENT REFUSED TO TAKE SENOKOT 17.2MG PO HS AND TRAZODONE 50 MG PO HS. OFFERED SENOKOT AND TRAZODONE THREE TIMES BUT STILL PATIENT REFUSED STATING, " I'M NOT CONSTIPATED AND I DON'T WANT TRAZODONE TONIGHT ". EDUCATED THE PATIENT ON THE RISK AND BENEFITS OF TAKING AND REFUSING AFOREMENTIONED MEDICATION. WILL CONTINUE TO MONITOR THIS PATIENT.
[2017-04-25 08:00] VITALS: BP 110/67
[2017-04-25 09:54] VITALS: BP 110/67
[2017-04-25] MEDS: BENAZEPRIL HCL 20 MG TABLET PO SCH (09:54)
[2017-04-25] MEDS: DULOXETINE HCL 30 MG CAPSULE.DR PO SCH (09:55)
[2017-04-25] MEDS: MEMANTINE HCL 5 MG TABLET PO SCH (09:55)
[2017-04-25] MEDS: ASPIRIN EC 81 MG TABLET.DR PO SCH (09:55)
[2017-04-25] MEDS: QUETIAPINE FUMARATE 25 MG TABLET PO SCH (09:55)
[2017-04-25] MEDS: CHOLECALCIFEROL 1,000 UNIT TABLET (VIT D3) PO SCH (09:55)
[2017-04-25] MEDS: CALCIUM CARB 600MG /VIT D 1 EACH TABLET PO SCH (09:55)
[2017-04-25] MEDS: Z GUARD REMEDY 2 OZ OINT TP SCH (09:55)
--- NOTE | 2017-04-25 14:20 | NUR ---
THEATRE PROFESSOR-NOTES PATIENT DISCHARGE TO [facility]. AND DR. TAN AWARE AND AGREES OF PATIENT DISCHARGE. REPORT WAS GIVEN TO RAUL (METABOLIC SPECIALIST). PATIENT DID NOT VERBALIZE SI/HI,DENIES VISUAL/AUDITORY HALLUCINATIONS AT THE TIME OF DISCHARGE.PATIENT REFUSED BODY ASSESSMENT (PICTURE TO BE TAKEN) PRIOR TO DISCHARGE EXCEPT FOR LEFT AND RIGHT FOREARM. DAUGHTER AMANDA IN THE UNIT AT THE TIME OF DISCHARGE AND AWARE. ALL BELONGINGS WAS TAKEN BY PT. DTR AMANDA, EXCEPT FOR THE EYEGLASSES WHICH PATIENT IS WEARING WHEN SHE LEFT THE UNIT. PATIENT LEFT THE UNIT IN STABLE CONDITION. SHE WAS CONSUMER ELECTRONIC RETAIL SPECIALIST BY AMBULANCE VIA [facility] WITH TWO STAFF ASSIST.
--- NOTE | 2017-04-25 15:37 | NUR ---
Discharge note: discharged to [facility] [address] [address] [facility] at 2[facility]00[facility]. Pt's daughter Liza [phone] was at bedside and agreed with the discharge plan. SW signed discharge paperwork and discharge instructions have been provided to the accepting facility.
== END 2017-04-25 14:20 | DRG 881 ==
LOC: ER 15:28 → GPS 18:03
PROVIDERS: ADMIT Psychiatry & Neurology Psychiatry; ATTEND Family Medicine
DX: F32.9 Major depressive disorder, single episode, unspecified (principal); F02.80 Dementia in other diseases classified elsewhere, unspecified severity, without behavioral disturbance, psychotic disturbance, mood disturbance, and anxiety; G93.41 Metabolic encephalopathy; E88.09 Other disorders of plasma-protein metabolism, not elsewhere classified; E44.1 Mild protein-calorie malnutrition; G30.9 Alzheimer's disease, unspecified; E11.9 Type 2 diabetes mellitus without complications; I10 Essential (primary) hypertension; D63.8 Anemia in other chronic diseases classified elsewhere; E78.5 Hyperlipidemia, unspecified; K21.9 Gastro-esophageal reflux disease without esophagitis; Z79.899 Other long term (current) drug therapy; Z73.6 Limitation of activities due to disability; Z68.25 Body mass index [BMI] 25.0-25.9, adult; F29 Unspecified psychosis not due to a substance or known physiological condition
CPT/HCPCS: 36415; 71010-TC; 80048-TC; 80053-TC; 80061-TC; 80076-TC; 80305; 81000-TC; 84443-TC; 85025-TC; 87081-TC; 97116-TC; 97530-TC; A4606; G0480; Z7610